=== PATIENT | female | born 1990 | race Two or more races ===

== ENCOUNTER 2020-06-25 08:05 | Inpatient (IN) | payer OTHER ==
--- OUTSIDE RECORDS SUMMARY | 2020-06-25 08:26 | XMS ---
:1990 Author Organization [facility] Care Team Providers Name Role Phone MD Amita Chamberlain Unavailable Unavailable MD Christian Chu Unavailable Unavailable Other, Doctor Unavailable Unavailable Re-disclosure Warning The records that you are about to access may contain information from federally- assisted alcohol or drug abuse programs. If such information is present, then the following federally mandated warning applies: This information has been disclosed to you from records protected by federal confidentiality rules (42 CFR part 2). The federal rules prohibit you from making any further disclosure of this information unless further disclosure is expressly permitted by the written consent of the person to whom it pertains or as otherwise permitted by 42 CFR part 2. A general authorization for the release of medical or other information is NOT sufficient for this purpose. The Federal rules restrict any use of the information to criminally investigate or prosecute any alcohol or drug abuse patient.The records that you are about to access may contain highly sensitive health information, the redisclosure of which is protected by Article 27-F of the [facility] Public Health law. If you continue you may haveaccess to information: Regarding HIV / AIDS; Provided by facilities licensed or operated by the [facility] Office of Mental Health; or Provided by the [facility] Office for People With Developmental Disabilities. If such information is present, then the following [facility] mandated warning applies: This information has been disclosed to you from confidential records which are protected by state law. State law prohibits you from making any further disclosure of this information without the specific written consent of the person to whom it pertains, or as otherwise permitted by law. Any unauthorized further disclosure in violation of state law may result in a fine or chcf sentence or both. A general authorization for the release of medical or other information is NOT sufficient authorization for further disclosure. Encounters Encounter Providers Location Date Indications Data Source(s ) Outpatient Attender: MD Levi ICUConcepciónOBCARYN 06/21/2020 [facility] [place] 08:50:00 AM Hospital Doctor Other EDT Outpatient Attender: Doctor SHIPMAN 06/12/2020 [facility] Other 10:36:30 AM Hospital EDT Admission cancelled. Disregard status an d admitted date. Outpatient Attender: MD Levi ICUConcepciónOBCARYN 06/07/2020 11:03:02 [facility] [place] Doctor AM EDT - 06/12/2020 Hospital Other 11:59:00 PM EDT Patient discharged. Outpatient Attender: MD Levi ICUConcepciónLABCLKingston 05/17/2020 11:07:39 [facility] [place]: Doctor AM EDT - 06/07/2020 Hospital Other 11:59:00 PM EDT Patient discharged. Outpatient Attender: MD Levi ICUConcepciónOBCARYN 05/08/2020 10:27:56 [facility] [place]: Doctor AM EDT - 05/17/2020 Hospital Other 11:59:00 PM EDT Patient discharged. Outpatient Attender: MD [facility]ETIC CTR 04/24/2020 05:06:00 [facility] [place] PM EDT - 04/24/2020 [facility] 11:59:00 PM EDT Patient discharged. Outpatient Attender: MD Levi ICUConcepciónOBCARYN 04/24/2020 10:49:20 [facility] [place]: Doctor AM EDT - 05/08/2020 [facility] Other 11:59:00 PM EDT Patient discharged. Outpatient Attender: MD [facility] CTR 04/18/2020 04:35:00 [facility] [place] PM EDT - 04/18/2020 [facility] 11:59:00 PM EDT Patient discharged. Outpatient Attender: MD SHIPMAN 04/18/2020 08:18:00 [facility] [place] - 04/18/2020 Hospital 11:59:00 PM EDT Patient discharged. Outpatient Attender: MD Levi ICU-OBGYN 04/17/2020 12:18:57 [facility] [place] Roland[place]: Doctor PM EDT - 04/24/2020 Hospital Other 11:59:00 PM EDT Patient discharged. Outpatient Attender: MD Levi ICU-[facility]CL[facility] 03/27/2020 11:38:26 [facility] [place]: Doctor AM EDT - 04/17/2020 Hospital Other 11:59:00 PM EDT Patient discharged. Outpatient Attender: MD Levi ICU-[facility]CLKing[place] 03/27/2020 10:15:00 [facility] [place] AM EDT - 03/27/2020 [facility] 11:59:00 PM EDT Patient discharged. Outpatient Attender: ICUConcepciónLABAILYN 03/27/2020 10:00:00 [facility] [place] Other AM EDT - 03/27/2020 [facility] 11:59:00 PM EDT Patient discharged. Medications Medication Brand Start Product Dose Route Administrative Pharmacy [facility] Indications Reaction Description Data Name Date Form Instructions Instructions Source(s) alpha-Tocop Thrivi [id number] active Thriv ite RX [facility] herol te RX 2019 {tab( Health Acetate 30 oral 09:37: s)} System UNT / tablet 47 AM Ascorbic EDT Acid 100 MG / Beta Carotene 1000 UNT / Calcium Carbonate 200 MG / Calcium Pantothenat e 7 MG / Cholecalcif radhika 400 UNT / Docusate Sodium 25 MG / Ferrous fumarate 29 MG / Folic Acid 1 MG / Niacinamide 15 MG / Pyrid Thrivite RX oral tablet May discolor urine or feces.Take with fo od or milk. [place]-3 Fatty 05/17/2020 1 [id number] aborted [facility] Acids DHA 200 10:55:44 AM {cap(s)} DHA Health DHA 200 mg oral mg oral EDT S ystem capsule capsule alpha-Tocopherol 04/20/2020 1 [id number] aborted [facility] Acetate 30 UNT / Plus Iron 12:07:34 PM {tab(s)} Plus Iron Health Ascorbic Acid oral EDT System 100 MG / Beta tablet Carotene 1000 UNT / Calcium Carbonate 200 MG / Calcium Pantothenate 7 MG / Cholecalciferol 400 UNT / Docusate Sodium 25 MG / Ferrous fumarate 29 MG / Folic Acid 1 MG / Niacinamide 15 MG / Pyrid Plus Iron oral tablet [place]-3 Fatty 04/17/2020 1 [id number] active [facility] Acids DHA 200 12:09:24 PM {cap(s)} DHA Health DHA 200 mg oral mg oral EDT S ystem capsule capsule Insurance Providers Payer name Policy type Policy ID Covered Covered republican's Policy P david / Coverage republican ID relationship to Don Inf ormation type don [facility] Medicaid [id number] 1 [id number] Plan 3&4 [facility] [id number] SP [id number] ESSENTIAL PLAN 3 4 [facility] [id number] SP [id number] HEALTH NON CAP Problems, Conditions, and Diagnoses Code Display Name Description Problem Type Effective Data Sour ce(s) Dates O34.219 Previous Previous 61433-2 03/27/2020 [facility] delivery delivery 12:00:00 AM Health System affecting affecting EDT , , antepartum antepartum Z34.93 Encounter for Encounter for Diagnosis 06/21/2020 S - Ne w supervision of [facility] unspecified, in third third trimester trimester Z3A.38 38 weeks 38 weeks Diagnosis 06/21/2020 S - New gestation of gestation of 12:00:00 AM [facility]ra EDT Hospital Z34.90 Encounter for Diagnosis 06/21/2020 S - New supervision of 12:00:00 AM Kendra normal , EDT Hospita l unspecified, unspecified trimester Z3A.37 37 weeks 37 weeks Diagnosis 06/12/2020 [facility] - New gestation of gestation of 12:00:00 AM Kendra EDT Hospital Z3A.36 36 weeks 36 weeks Diagnosis 06/07/2020 S - New gestation of gestation of 12:00:00 AM Kendra EDT Hospital Z3A.33 33 weeks 33 weeks Diagnosis 05/17/2020 S - New gestation of gestation of 12:00:00 AM Kendra EDT Hospital P07.35 , 32 week Diagnosis 05/08/2020 S - Ne w gestational age prematurity 12:00:00 AM Tegan e 32 completed EDT Hospital weeks Z3A.32 32 weeks 32 weeks Diagnosis 05/08/2020 S - New gestation of gestation of 12:00:00 AM Kendra EDT [facility] O24.410 Gestational Gestational Diagnosis 04/24/2020 [facility] - [facility] diabetes mellitus diabetes 05:06:00 PM Mara le in , mellitus, EDT [facility] diet controlled diet-controlled O36.5990 Maternal care for IUGR, Diagnosis 04/24/2020 S - New other known or 12:00:00 AM [place] suspected poor EDT [facility] growth, unspecified trimester, not applicable or unspecified O09.90 Supervision of High risk Diagnosis 04/24/2020 S - New high risk , 12:00:00 AM Kendra , antepartum EDT Hospital unspecified, unspecified trimester Z3A.30 30 weeks 30 weeks Diagnosis 04/24/2020 S - New gestation of gestation of 12:00:00 AM Kendra EDT [facility] Z34.83 Encounter for Encounter for Diagnosis 04/18/2020 S - Ne w supervision of supervision of 08:18:00 AM [place]aleb l[place] other normal normal EDT Hospit al , third in multigravida trimester in third trimester Z3A.29 29 weeks 29 weeks Diagnosis 04/17/2020 S - New gestation of gestation of 12:00:00 AM Kendra EDT [facility] Z34.92 Encounter for Encounter for Diagnosis 03/27/2020 S - Ne w supervision of supervision of 10:15:00 AM [place] l[place] normal , normal EDT ospital unspecified, in second second trimester trimester O34.219 Maternal care for Previous Diagnosis 03/27/2020 S - New unspecified type delivery 12:00:00 AM Tegan e [facility] from [facility] EDT [facility] previous , delivery antepartum Z3A.26 26 weeks 26 weeks Diagnosis 03/27/2020 S - New gestation of gestation of 12:00:00 AM Kendra EDT [facility] Surgeries/Procedures Procedure Description Date Indications Data Source(s) Uric Acid, Serum 06/07/2020 02:44:17 [facility] PM EDT - 06/07/2020 02:44:59 PM EDT Results ID Date Data Source [id number] 06/21/2020 11:55:00 AM EDT [facility] Name Value Range Interpretation Description Data Sup porting Code Source(s) Document(s ) SARS [facility] coronavirus 2 RNA This lab was ordered by [facility] and reported by [facility]. ID Date Data Source [id number] 06/18/2020 01:54:35 AM EDT [facility] Name Value Range Interpretation Description Data Sup porting Code Source(s) Document(s ) VaricellaResultValue 322.10 Normal (applies Varicella [facility] {index} to non-numeric Result Value Health results) System Index Interpretation------ --- <135.00 Negative - Antibody not detected1 35.00 - 164.99 Equivocal> or = 165.00 Positive - Antibody detectedA positive r esult indicates that the patienthas antibody to VZV but does not differentiatebetween an active or past infection. The clinical diagnosis must be interpreted in conjunc tion with the clinical signs and symptoms of the patient. This assay reliably measure s immunitydue to previous infection but may not be sensitive enough to detect antibo dies induced byvaccination. Thus, a negative result in a vaccinatedindividual does no t necessarily indicatesusceptibility to VZV infection. A more sensitivetest for vacc ination-induced immunity is VaricellaZoster Virus Antibody Immunity Screen, ACIF.THI S TEST WAS PERFORMED AT:[facility] [id number] TSAO,MDReported Date and Time - 03/30/20 20 11:57 ID Date Data Source [id number] 06/18/2020 01:54:35 AM EDT [facility] Name Value Range Interpretation Description Data Sup porting Code Source(s) Document(s ) Hemoglobin 11.8 Below low normal Hemoglobin [facility] [Mass/volume] in {gm/dL} Health Blood System Leukocytes 8.8 Normal (applies WBC Count [facility] [#/volume] in {10^3_uL to non-numeric Health Unspecified } results) System specimen by Automated count Erythrocytes 3.83 Below low normal RBC Count [facility] [#/volume] in {10^6_uL Health Blood by } System Automated count Erythrocyte mean 30.8 pg Normal (applies MCH [facility] corpuscular to non-numeric Health hemoglobin results) System [Entitic mass] by Automated count Hematocrit 35.7 % Below low normal Hematocrit [facility] [Volume Health Fraction] of System Blood Erythrocyte 12.4 % Normal (applies RDW-CV [facility] distribution to non-numeric Health width [Entitic results) System volume] by Automated count Erythrocyte mean 93.2 fl Normal (applies MCV [facility] corpuscular to non-numeric Health volume [Entitic results) System volume] by Automated count Erythrocyte mean 33.1 Normal (applies MCHC [facility] corpuscular {gm/dL} to non-numeric Health hemoglobin results) System concentration [Mass/volume] by Automated count Platelets 272 Normal (applies Platelet Count [facility] [#/volume] in {10^3_uL to non-numeric Health Plasma by } results) System Automated count Nucleated 0.0 Normal (applies NRBC % [facility] erythrocytes {/100_WB to non-numeric Health [#/volume] in C} results) System Body fluid Platelet mean 9.6 fl Normal (applies MPV [facility] volume [Entitic to non-numeric Health volume] in Blood results) System by Automated count NRBC# 0.00 Normal (applies NRBC # [facility] {10^3_uL to non-numeric Health } results) System Neutrophils/100 69.1 % Normal (applies Neutrophil % [place] lisa leukocytes in to non-numeric Health Blood by results) System Automated count Lymphocytes 21.3 % Normal (applies Lymphocyte % [facility] [#/volume] in to non-numeric Health Blood by results) System Automated count Neutrophils 6.1 Normal (applies Neutrophil # [facility] [#/volume] in {10^3_uL to non-numeric Health Body fluid } results) System Lymphocyte 1.9 Normal (applies Lymphocyte # [facility] percent {10^3_uL to non-numeric Health differential } results) System count (procedure) Monocytes/100 7.2 % Normal (applies Monocyte % [facility] leukocytes in to non-numeric Health Blood results) System Monocytes 0.6 Normal (applies Monocyte # [facility] [#/volume] in {10^3_uL to non-numeric Health Blood by Manual } results) System count Basophils 0.03 Normal (applies Basophil # [facility] [#/volume] in {10^3_uL to non-numeric Health Blood by } results) System Automated count Eosinophils 0.14 Normal (applies Eosinophil # [facility] [#/volume] in {10^3_uL to non-numeric Health Blood } results) System Basophils/100 0.3 % Normal (applies Basophil % [facility] leukocytes in to non-numeric Health Unspecified results) System specimen by Manual count Eosinophils/100 1.6 % Normal (applies Eosinophil % [place] lisa leukocytes in to non-numeric Health Unspecified results) System specimen ImmatureGranuloc 0.04 Normal (applies Immature [facility] ytes# {10^3_uL to non-numeric Granulocytes # Health } results) System ImmatureGranuloc 0.5 % Normal (applies Immature [facility] ytes% to non-numeric Granulocytes % Health results) System ID Date Data Source [id number] 06/18/2020 01:54:35 AM EDT [facility] Name Value Range Interpretation Code Description Data Shea rce(s) Supporting Document(s ) HbA1C 5.0 % Normal (applies to HbA1C [facility] non-numeric results) System ID Date Data Source [id number] 06/18/2020 01:54:35 AM EDT [facility] Name Value Range Interpretation Description Data Source(s ) Supporting Code Document(s ) 1HrGlucos 160 Normal (applies to 1 Hr Glucose [facility] {gm/dL} non-numeric Health System results) Normal <130Borderline 130-140A bnormal >140 ID Date Data Source [id number] 06/18/2020 01:54:35 AM EDT [facility] Name Value Range Interpretation Description Data Sup porting Code Source(s) Document(s ) Sodium 137 Normal (applies Sodium, Serum [facility] [Moles/volume] in mmol/L to non-numeric Health Serum or Plasma results) System Chloride 104 Normal (applies Chloride, [facility] [Moles/volume] in mmol/L to non-numeric Serum Health Serum or Plasma results) System Carbon dioxide, 25.0 Normal (applies CO2, Serum [facility] total mmol/L to non-numeric Health [Moles/volume] in results) System Serum or Plasma Potassium 4.0 Normal (applies Potassium, [facility] [Mass/volume] in mmol/L to non-numeric Serum Health Serum or Plasma results) System TotalProtein 6.5 Normal (applies Total Protein [facility] mg/dl to non-numeric Health results) System Glucose 152 Above high Glucose, [facility] [Mass/volume] in mg/dL normal Serum Health Serum or Plasma System Creatinine 0.61 Normal (applies Creatinine, [facility] [Mass/volume] in mg/dl to non-numeric Serum Health Serum or Plasma results) System Urea nitrogen 10 Normal (applies Blood Urea [facility] [Mass/volume] in mg/dl to non-numeric Nitrogen, Health Serum or Plasma results) Serum System DirectBilirubin 0.1 Normal (applies Direct [facility] mg/dl to non-numeric Bilirubin Health results) System Bilirubin.total 0.4 Normal (applies Bilirubin, [facility] [Mass/volume] in mg/dl to non-numeric Serum Total Health Serum or Plasma results) System Aspartate 13 Normal (applies Aspartate [facility] aminotransferase {IU/L} to non-numeric Transaminase, Heal th [Enzymatic results) Serum System activity/volume] in Serum or Plasma by With P-5'-P Alkaline 56 Normal (applies Alkaline [facility] phosphatase {IU/L} to non-numeric Phosphatase, [facility] isoenzymes results) Serum System [Enzymatic activity/volume] in Serum or Plasma by Heat stability Alanine 12 Normal (applies Alanine [facility] aminotransferase {IU/L} to non-numeric Aminotransfer Heal th [Enzymatic results) ase, Serum System activity/volume] in Serum or Plasma Albumin 3.5 Normal (applies Albumin, [facility] [Mass/volume] in {gm/dl} to non-numeric Serum Health Serum or Plasma results) System I.Phosphorus 2.9 Normal (applies I. Phosphorus [facility] mg/dl to non-numeric Health results) System Calcium 8.8 Normal (applies Calcium, [facility] [Mass/volume] in mg/dl to non-numeric Total Serum Health Serum or Plasma results) System A/GRatio 1.17 Normal (applies A/G Ratio [facility] to non-numeric Health results) System Urate 4.0 Normal (applies Uric Acid, [facility] [Mass/volume] in mg/dl to non-numeric Serum Health Serum or Plasma results) System Anion gap in Serum 8.00 Normal (applies Anion Gap [place] lisa or Plasma mmol/L to non-numeric Health results) System Glomerular > 90 Normal (applies GFR [facility] filtration to non-numeric Health rate/1.73 sq results) System M.predicted [Volume Rate/Area] in Serum or Plasma by Creatinine-based formula (CKD-EPI) eGFR will provide clinicians with a more accurate indicator of renal function then the serum creatinine. The eGFR is automa tically calculated from an empiric formula (endorsed by the National Kidney Found[employer] ion) which incorporates age, sex, and race.Clinicians may notice surprisingly low GFR's with serum creatinine valueswithin normal range- particularly in elderly wo men (with low muscle mass).In the hospital setting, the eGFR should add an element of safety in drug dosing, in assessing the risk of IV contrast administration, and in assessing vascular risk.The NKF staging system is as follows:Normal: eGFR >90 with no kidney markersStage 1: eGFR >90 with kidney markers*Stage 2: eGFR 60- 89Stage 3: eGFR 30-59Stage 4: eGFR 15-29Stage 5: eGFR <15 (usually requir ing dialysis)*Markers include: Proteinuria, Hematuria, abnormal imaging-studies, or other blood or urine test abnormalities ID Date Data Source [id number] 06/18/2020 01:54:35 AM EDT Kenneth martinez System Name Value Range Interpretation Description Data Sup porting Code Source(s) Document(s ) Blood 84 mg/dL Normal (applies Glucose [facility] glucose to non-numeric Tolerance, Health tolerance results) Serum Fasting System (procedure) Glucose Cancelled NO Glucose [facility] [Mass/volume SPECIMEN Tolerance, Health ] in Serum COLLECTED/ Serum 30 System or Plasma PATIENT Minutes --30 minutes VOMITTED/BENJAMÍN post [facility] challenge Glucose Cancelled NO Glucose [facility] [Mass/volume SPECIMEN Tolerance, Health ] in Serum COLLECTED/ Serum 2 Hour System or Plasma PATIENT --2 hours VOMITTED/BENJAMÍN post [facility] challenge Glucose Cancelled NO Glucose [facility] [Mass/volume SPECIMEN Tolerance, Health ] in Serum COLLECTED/ Serum 1 Hour System or Plasma PATIENT --1 hour VOMITTED/BENJAMÍN post [facility] challenge Glucose Cancelled NO Glucose [facility] [Mass/volume SPECIMEN Tolerance, Health ] in Serum COLLECTED/ Serum 3 Hour System or Plasma PATIENT --3 hours VOMITTED/BENJAMÍN post [facility] challenge ID Date Data Source [id number] 06/18/2020 01:54:35 AM EDT [facility] Name Value Range Interpretation Description Data Sup porting Code Source(s) Document(s ) Type A Normal (applies Type [facility] to non-numeric Health results) System AntibodyScreen Negative Normal (applies Antibody [facility] to non-numeric Screen Health results) System D Ab [Titer] in Negative Normal (applies Rh [facility] Serum or Plasma to non-numeric Health results) System ID Date Data Source [id number] 06/18/2020 01:54:35 AM EDT [facility] System Name Value Range Interpretation Description Data Sup porting Code Source(s) Document(s ) Human NONREACTIVE The Normal (applies HIV test, [facility] immunodeficien Jr. Systems Administrator HIV to non-numeric Routine Health cy virus 4th generation results) (antigen and System antibody titer HIV-1/2 antibody measurement Antigen/Antibod testing) (procedure) y combination is a chemiluminescen t Microparticle immunoassay(CMI A) for the simultaneous qualitative detection of HIV p24 antigen and HIV-1 and HIV-2 antibodies. The performance of this assay has not been clinically validated on patients less than 2 years old. Reference Range: NONREACTIVE . ID Date Data Source [id number] 06/18/2020 01:54:35 AM EDT Kenneth Lennon al[facility] System Name Value Range Interpretation Description Data Sup porting Code Source(s) Document(s ) Leukocytes 8.9 Normal (applies WBC Count [facility] [#/volume] in {10^3_uL to non-numeric Health Unspecified } results) System specimen by Automated count Hemoglobin 13.1 Normal (applies Hemoglobin [facility] [Mass/volume] in {gm/dL} to non-numeric Health Blood results) System Erythrocytes 4.31 Normal (applies RBC Count [facility] [#/volume] in {10^6_uL to non-numeric Health Blood by } results) System Automated count Erythrocyte mean 30.4 pg Normal (applies MCH [facility] corpuscular to non-numeric Health hemoglobin results) System [Entitic mass] by Automated count Erythrocyte mean 90.3 fl Normal (applies MCV [facility] corpuscular to non-numeric Health volume [Entitic results) System volume] by Automated count Hematocrit 38.9 % Normal (applies Hematocrit [facility] [Volume to non-numeric Health Fraction] of results) System Blood Erythrocyte mean 33.7 Normal (applies MCHC [facility] corpuscular {gm/dL} to non-numeric Health hemoglobin results) System concentration [Mass/volume] by Automated count Erythrocyte 13.1 % Normal (applies RDW-CV [facility] distribution to non-numeric Health width [Entitic results) System volume] by Automated count Platelets 261 Normal (applies Platelet Count [facility] [#/volume] in {10^3_uL to non-numeric Health Plasma by } results) System Automated count Nucleated 0.0 Normal (applies NRBC % [facility] erythrocytes {/100_WB to non-numeric Health [#/volume] in C} results) System Body fluid NRBC# 0.00 Normal (applies NRBC # [facility] {10^3_uL to non-numeric Health } results) System Platelet mean 10.5 fl Normal (applies MPV [facility] volume [Entitic to non-numeric Health volume] in Blood results) System by Automated count Lymphocytes 25.0 % Normal (applies Lymphocyte % [facility] [#/volume] in to non-numeric Health Blood by results) System Automated count Neutrophils/100 63.8 % Normal (applies Neutrophil % [place] lias leukocytes in to non-numeric Health Blood by results) System Automated count Neutrophils 5.7 Normal (applies Neutrophil # [facility] [#/volume] in {10^3_uL to non-numeric Health Body fluid } results) System Monocytes 0.8 Normal (applies Monocyte # [facility] [#/volume] in {10^3_uL to non-numeric Health Blood by Manual } results) System count Monocytes/100 9.1 % Above high Monocyte % [facility] leukocytes in normal Health Blood System Lymphocyte 2.2 Normal (applies Lymphocyte # [facility] percent {10^3_uL to non-numeric Health differential } results) System count (procedure) Eosinophils 0.13 Normal (applies Eosinophil # [facility] [#/volume] in {10^3_uL to non-numeric Health Blood } results) System Eosinophils/100 1.5 % Normal (applies Eosinophil % [place] lisa leukocytes in to non-numeric Health Unspecified results) System specimen Basophils/100 0.2 % Normal (applies Basophil % [facility] leukocytes in to non-numeric Health Unspecified results) System specimen by Manual count Basophils 0.02 Normal (applies Basophil # [facility] [#/volume] in {10^3_uL to non-numeric Health Blood by } results) System Automated count ImmatureGranuloc 0.04 Normal (applies Immature [facility] ytes# {10^3_uL to non-numeric Granulocytes # Health } results) System ImmatureGranuloc 0.4 % Normal (applies Immature [facility] ytes% to non-numeric Granulocytes % Health results) System ID Date Data Source [id number] 06/18/2020 01:54:35 AM EDT [facility] Name Value Range Interpretation Description Data Sup porting Code Source(s) Document(s ) Sodium 136 Normal (applies Sodium, Serum [facility] [Moles/volume] in mmol/L to non-numeric Health Serum or Plasma results) System Chloride 104 Normal (applies Chloride, [facility] [Moles/volume] in mmol/L to non-numeric Serum Health Serum or Plasma results) System Potassium 4.0 Normal (applies Potassium, [facility] [Mass/volume] in mmol/L to non-numeric Serum Health Serum or Plasma results) System TotalProtein 6.3 Below low normal Total Protein [facility] mg/dl [facility] System Glucose 97 Normal (applies Glucose, [facility] [Mass/volume] in mg/dL to non-numeric Serum Health Serum or Plasma results) System Carbon dioxide, 23.1 Normal (applies CO2, Serum [facility] total mmol/L to non-numeric Health [Moles/volume] in results) System Serum or Plasma Creatinine 0.63 Normal (applies Creatinine, [facility] [Mass/volume] in mg/dl to non-numeric Serum Health Serum or Plasma results) System Urea nitrogen 10 Normal (applies Blood Urea [facility] [Mass/volume] in mg/dl to non-numeric Nitrogen, Health Serum or Plasma results) Serum System Alkaline 124 Above high Alkaline [facility] phosphatase {IU/L} normal Phosphatase, Health isoenzymes Serum System [Enzymatic activity/volume] in Serum or Plasma by Heat stability Bilirubin.total 0.6 Normal (applies Bilirubin, [facility] [Mass/volume] in mg/dl to non-numeric Serum Total Health Serum or Plasma results) System Aspartate 11 Normal (applies Aspartate [facility] aminotransferase {IU/L} to non-numeric Transaminase, Heal th [Enzymatic results) Serum System activity/volume] in Serum or Plasma by With P-5'-P DirectBilirubin 0.1 Normal (applies Direct [facility] mg/dl to non-numeric Bilirubin Health results) System Albumin 3.4 Normal (applies Albumin, [facility] [Mass/volume] in {gm/dl} to non-numeric Serum Health Serum or Plasma results) System Alanine 10 Normal (applies Alanine [facility] aminotransferase {IU/L} to non-numeric Aminotransfer Heal th [Enzymatic results) ase, Serum System activity/volume] in Serum or Plasma I.Phosphorus 2.7 Normal (applies I. Phosphorus [facility] mg/dl to non-numeric Health results) System A/GRatio 1.17 Normal (applies A/G Ratio [facility] to non-numeric [facility] results) System Calcium 8.8 Normal (applies Calcium, [facility] [Mass/volume] in mg/dl to non-numeric Total Serum [facility] Serum or Plasma results) System Urate 4.0 Normal (applies Uric Acid, [facility] [Mass/volume] in mg/dl to non-numeric Serum Health Serum or Plasma results) System Anion gap in Serum 8.90 Normal (applies Anion Gap Carlyle lisa or Plasma mmol/L to non-numeric Health results) System Glomerular > 90 Normal (applies GFR [facility] filtration to non-numeric Health rate/1.73 sq results) System M.predicted [Volume Rate/Area] in Serum or Plasma by Creatinine-based formula (CKD-EPI) eGFR will provide clinicians with a more accurate indicator of renal function then the serum creatinine. The eGFR is automa tically calculated from an empiric formula (endorsed by the National Kid[employer] ion) which incorporates age, sex, and race.Clinicians may notice surprisingly low GFR's with serum creatinine valueswithin normal range- particularly in elderly wo men (with low muscle mass).In the hospital setting, the eGFR should add an element of safety in drug dosing, in assessing the risk of IV contrast administration, and in assessing vascular risk.The NKF staging system is as follows:Normal: eGFR >90 with no kidney markersStage 1: eGFR >90 with kidney markers*Stage 2: eGFR 60- 89Stage 3: eGFR 30-59Stage 4: eGFR 15-29Stage 5: eGFR <15 (usually requir ing dialysis)*Markers include: Proteinuria, Hematuria, abnormal imaging-studies, or other blood or urine test abnormalities ID Date Data Source [id number] 06/18/2020 01:54:35 AM EDT [facility] Name Value Range Interpretation Description Data Sup porting Code Source(s) Document(s ) Reagin Ab Non-reactive Normal (applies RPR. [facility] [Presence Test to non-numeric Health ] in Methodology: results) System Serum by Nontreponemal RPR flocculation card test. ID Date Data Source [id number] 06/18/2020 01:54:35 AM EDT [facility] Name Value Range Interpretation Description Data Sup porting Code Source(s) Document(s ) XXX BETA HEMOLYTIC Organism [facility] microorganism STREPTOCOCCUS Health serotype GROUP B System [Identifier] in Isolate by Agglutination Streptococcus Micro Result Normal (applies Culture [facility] agalactiae to non-numeric Screen, Health [Presence] in results) Strep Group System Cervix by B Organism specific culture ColonyCount MANY Bromide Count [facility] System ID Date Data Source [id number] 06/18/2020 01:54:35 AM EDT [facility] Name Value Range Interpretation Description Data Sup porting Code Source(s) Document(s ) N.Gonor NOT DETECTED Normal (applies N. Gonorrhea [facility] rheabyL Reference Range: to non-numeric by LCR Health CR NOT DETECTED results) System C.Trach NOT DETECTED Normal (applies C. [facility] omatisA Reference Range: to non-numeric Trachomatis Health mp NOT DETECTED results) Amp System (Always SEE NOTES The Normal (applies (Always [facility] Message analytical to non-numeric Message) Health ) performance results) System characteristics of thisassay, when used to test SurePath(TM) specimens have beendetermined by [employer]. The modifications havenot been cleared or approved by the FDA. This assay hasbeen validated pursuant to the CLIA regulations and isused for clinical purposes.For additional information, please refer [email or web address] [email or web address]/faq/[email or web address](Th is link is being provided for information/educat ional purposes only.)THIS TEST WAS PERFORMED AT:[place] [id number] MEJIAMDReported Date and Time - 06/09/2020 04:03 Procedure Vital Signs ID Date Data Source UNK Name Value Range Interpretation Code Description Data Source(s) Body surface area 1.8 m2 1.8 m2 [facility] Derived from Health Syste m formula Body mass index 26.9 kg/m2 26.9 kg/m2 [facility] (BMI) [Ratio] [facility] Syst em Body weight 73.48 kg 73.48 kg [facility] System Body height 165.1 cm 165.1 cm [facility] System Body temperature 97.9 [degF] 0 - 200 Normal (applies to 97.9 [degF ] [facility] non-numeric results) [facility] System Body temperature 36.6 Naz 0 - 99.9 Normal (applies to 36.6 Naz [facility] non-numeric results) [facility] System Diastolic blood 85 mm[Hg] 0 - 999 Above high normal 85 mm[Hg] [facility] pressure [facility] System Systolic blood 119 mm[Hg] 0 - 999 Normal (applies to 119 mm[Hg] [facility] pressure non-numeric results) [facility] System Heart rate 84 0 - 999 Normal (applies to 84 [facility] non-numeric results) [facility] System Body surface area 1.8 m2 1.8 m2 [facility] Derived from Health Syste m formula Body mass index 26.7 kg/m2 26.7 kg/m2 [facility] (BMI) [Ratio] [facility] Syst em Body weight 73.02 kg 73.02 kg [facility] Body height 165.1 cm 165.1 cm [facility] System Body temperature 97.3 [degF] 0 - 200 Normal (applies to 97.3 [degF ] [facility] non-numeric results) [facility] System Body temperature 36.2 Naz 0 - 99.9 Below low normal 36.2 Naz [facility] Diastolic blood 94 mm[Hg] 0 - 999 Above high normal 94 mm[Hg] [facility] pressure [facility] System Systolic blood 131 mm[Hg] 0 - 999 Normal (applies to 131 mm[Hg] [facility] pressure non-numeric results) [facility] System Heart rate 78 0 - 999 Normal (applies to 78 [facility] non-numeric results) [facility] System Body surface area 1.7 m2 1.7 m2 [facility] Derived from [employer] m formula Body mass index 26.6 kg/m2 26.6 kg/m2 [facility] Body weight 72.57 kg 72.57 kg [facility] System Body height 165.1 cm 165.1 cm [facility] Body temperature 98.9 [degF] 0 - 200 Normal (applies to 98.9 [degF ] [facility] non-numeric results) [facility] System Body temperature 37.1 Naz 0 - 99.9 Normal (applies to 37.1 Naz [facility] non-numeric results) [facility] System Diastolic blood 76 mm[Hg] 0 - 999 Normal (applies to 76 mm[Hg] [facility] pressure non-numeric results) [facility] System Systolic blood 126 mm[Hg] 0 - 999 Normal (applies to 126 mm[Hg] [facility] pressure non-numeric results) [facility] System Heart rate 101 0 - 999 Above high normal [address] [facility] Body surface area 1.7 m2 1.7 m2 [facility] Derived from [employer] m formula Body mass index 26.2 kg/m2 26.2 kg/m2 [facility] ([facility]) [Ratio] [employer] Body weight 71.66 kg 71.66 kg [facility] System Body height 165.1 cm 165.1 cm [facility] Body temperature 98.5 [degF] 0 - 200 Normal (applies to 98.5 [degF ] [facility] non-numeric results) [facility] System Body temperature 36.9 Naz 0 - 99.9 Normal (applies to 36.9 Naz [facility] non-numeric results) [facility] System Diastolic blood 73 mm[Hg] 0 - 999 Normal (applies to 73 mm[Hg] [facility] pressure non-numeric results) [facility] System Systolic blood 124 mm[Hg] 0 - 999 Normal (applies to 124 mm[Hg] [facility] pressure non-numeric results) [facility] System Heart rate 83 0 - 999 Normal (applies to 83 [facility] non-numeric results) [facility] Body weight 72.57 kg 72.57 kg [facility] System Diastolic blood 81 mm[Hg] 0 - 999 Normal (applies to 81 mm[Hg] [facility] pressure non-numeric results) [facility] System Systolic blood 126 mm[Hg] 0 - 999 Normal (applies to 126 mm[Hg] [facility] pressure non-numeric results) [facility] System Heart rate 90 0 - 999 Normal (applies to 90 [facility] non-numeric results) [facility] System Body surface area 1.7 m2 1.7 m2 [facility] ore Derived from Health Syste m formula Body mass index 26.6 kg/m2 26.6 kg/m2 [facility] (BMI) [Ratio] [facility] Body weight 72.57 kg 72.57 kg [facility] System Body height 165.1 cm 165.1 cm [facility] System Body temperature 98.2 [degF] 0 - 200 Normal (applies to 98.2 [degF ] [facility] non-numeric results) [facility] System Body temperature 36.7 Naz 0 - 99.9 Normal (applies to 36.7 Naz [facility] non-numeric results) [facility] System Diastolic blood 53 mm[Hg] 0 - 999 Below low normal 53 mm[Hg] [facility] System Systolic blood 121 mm[Hg] 0 - 999 Normal (applies to 121 mm[Hg] [facility] pressure non-numeric results) [facility] System Heart rate 94 0 - 999 Normal (applies to 94 [facility] non-numeric results) [facility] System Body surface area 1.7 m2 1.7 m2 [facility] ore Derived from Health Syste m formula Body mass index 28.7 kg/m2 28.7 kg/m2 [facility] (BMI) [Ratio] [facility] Syst em Body weight 71.21 kg 71.21 kg [facility] System Body height 157.48 cm 157.48 cm [facility] System Body temperature 99.1 [degF] 0 - 200 Normal (applies to 99.1 [degF ] [facility] non-numeric results) [facility] System Body temperature 37.2 Naz 0 - 99.9 Normal (applies to 37.2 Naz [facility] non-numeric results) [facility] System Diastolic blood 63 mm[Hg] 0 - 999 Below low normal 63 mm[Hg] [facility] pressure [facility] System Systolic blood 95 mm[Hg] 0 - 999 Below low normal 95 mm[Hg] [facility] efior pressure [facility] System Heart rate 101 0 - 999 Above high normal 101 [facility] System Patient Treatment Plan of Care Planned Activity Planned Date Details Description Data Source (s) alpha-Tocopherol Acetate 05/24/2020 [facility] 30 UNT / Ascorbic Acid 100 09:37:47 AM EDT System MG / Beta Carotene 1000 UNT / Calcium Carbonate 200 MG / Calcium Pantothenate 7 MG / Cholecalciferol 400 UNT / Docusate Sodium 25 MG / Ferrous fumarate 29 MG / Folic Acid 1 MG / Niacinamide 15 MG / Pyrid [place]-3 Fatty Acids 05/17/2020 [facility] 10:55:44 AM EDT System alpha-Tocopherol Acetate 04/20/2020 [facility] 30 UNT / Ascorbic Acid 100 12:07:34 PM EDT System MG / Beta Carotene 1000 UNT / Calcium Carbonate 200 MG / Calcium Pantothenate 7 MG / Cholecalciferol 400 UNT / Docusate Sodium 25 MG / Ferrous fumarate 29 MG / Folic Acid 1 MG / Niacinamide 15 MG / Pyrid [place]-3 Fatty Acids 04/17/2020 [facility] 12:09:24 PM EDT System
--- NOTE | 2020-06-25 08:42 | HP ---
Past Medical History - Primary Care Physician PCP:: Amita Chamberlain - Admission Chief Complaint: 29 yo @ 39 weeks. h/o c/s for Failed Induction, LGA. Admitted for rpt c/s, declined History of Present Illness: 29 yo @ 39 weeks h/o c/s for Failed Induction, LGA Admitted for rpt c/s, declined History Source: Patient Limitations to Obtaining History: No Limitations - Past Medical History ...: 2 ...Para: 1 ... Weeks Gestation by Dates: 39 ...EDC by Dates: 06/30/20 ...EDC by Sono: 06/30/20 - Past Surgical History Past Surgical History: Yes: Hx Myomectomy: No Hx Transabdominal Cerclage: No - Smoking History Smoking history: Never smoked Have you smoked in the past 12 months: No - Alcohol/Substance Use Hx Alcohol Use: No History of Substance Use: reports: None - Social History Usual Living Arrangement: Yes: With Spouse History of Recent Travel: No Home Medications - Allergies Allergies/Adverse Reactions: Allergies Allergy/AdvReac Type Severity Reaction Status Date / Time No Known Allergies Allergy Verified 06/25/20 08:42 Family Medical History Family History: Unremarkable Review of Systems - Review of Systems Constitutional: reports: No Symptoms Eyes: reports: No Symptoms HENT: reports: No Symptoms Neck: reports: No Symptoms Cardiovascular: reports: No Symptoms Respiratory: reports: No Symptoms Gastrointestinal: reports: No Symptoms Genitourinary: reports: No Symptoms Breasts: reports: No Symptoms Reported Musculoskeletal: reports: No Symptoms Integumentary: reports: No Symptoms Neurological: reports: No Symptoms Endocrine: reports: No Symptoms Hematology/Lymphatic: reports: No Symptoms Psychiatric: reports: No Symptoms Physical Exam - Maternity Constitutional: Yes: Well Nourished, No Distress Eyes: Yes: WNL HENT: Yes: WNL Neck: Yes: WNL Cardiovascular: Yes: WNL Lungs: Clear to auscultation Breast(s): Yes: WNL - Abdominal Exam/OB Fundal Height: 38 Number of Fetuses: Single Presentation: Vertex Contractions: No Regularity: Irregular Intensity: Unaware Monitor Mode: External Heart Rate Location: [facility] Category: I Accelerations: Uniform Decelerations: None - Vaginal Exam/OB Vaginal Bleeding: No Dilatation (cm): closed Effacement (%): 30 Amniotic Membrane Status: Intact Presentation: Vertex/Position Station: -2 - Physical Exam Musculoskeletal: Yes: WNL Extremities: Yes: WNL Edema: Yes Edema: LLE: 1+, RLE: 1+ Integumentary: Yes: WNL Deep Tendon Reflex Grade: Normal +2 ...Motor Strength: WNL Psychiatric: Yes: WNL Hemorrhage Risk Assessment - Risk Factors Medium Risk Factors: Yes: Prior , uterine surgery,or multiple laparotomies Risk Score: 1 Risk Level: Medium Risk Problem List - Problems (1) 39 weeks gestation of Code(s): Z3A.39 - 39 WEEKS GESTATION OF (2) Previous delivery affecting Code(s): O34.219 - MATERNAL CARE FOR UNSP TYPE SCAR FROM PREVIOUS DEL Assessment/Plan Admit to LD Rpt c/s x 2 Risks, benefits, alternatives discussed with pt and her . Pt verbalized understanding and signed consent form
[2020-06-25] MEDS ORDERED: CITRIC ACID/SODIUM CITRATE 30 ML UNIT-DOSE CUP PO ONE (08:46)
[2020-06-25] MEDS: ELECTROLYTE-148 SOLN 1,000 ML IV SCH (09:20)
[2020-06-25 09:45] VITALS: BMI 27.1
[2020-06-25] MEDS ORDERED: ONDANSETRON 4 MG/2 ML VIAL IVPUSH PRN (10:25)
[2020-06-25] MEDS ORDERED: morphine SULFATE/PF 0.5 MG/ML (2cc Syringe - QUVA) SPIN ONE (10:25)
[2020-06-25] MEDS ORDERED: morphine SULFATE/PF 0.5 MG/ML (2cc Syringe - QUVA) ONE (10:38)
[2020-06-25] MEDS ORDERED: ePHEDrine SULFATE 50 MG/1 ML AMPULE ONE (10:39)
[2020-06-25] MEDS ORDERED: OXYTOCIN 20 UNITS in 0.9% NS 20 UNIT/1,000 ML INFUS.BAG IV ONE (11:17)
--- NOTE | 2020-06-25 12:02 | OP ---
Operative Note - Note: Operative Date: 06/25/20 Pre-Operative Diagnosis: 29 yo @ 39 weeks Previous c/s x 2 Unknown scar Operation: Rpt c/s via Pfannenstiel incision Findings: Baby girl born 9/ WT 3000gm, cord gases and blood collected Placenta and membranes complete Surgeon: Amita Chamberlain Mail Caller: Kimo Del Cid Anesthesiologist/PATIENT INTAKE REPRESENTATIVE: Jessica Bateman MD Anesthesia: Spinal Specimens Removed: placenta and membranes, cord gases and blood Estimated Blood Loss (mls): 800 Operative Report Dictated: No
[2020-06-25] MEDS ORDERED: METHYLERGONOVINE MALEATE 0.2 MG/1 ML AMP IM PRN (12:03)
[2020-06-25 12:06] LABS: CORD HCO3 26.6 mmHg (20-29); CORD PCO2 60.4 mmHg (30-78); CORD pH 7.261 (7.14-7.44)
[2020-06-25] MEDS ORDERED: ACETAMINOPHEN 1000 MG/100 ML VIAL (NON FORMULARY) IVPB PRN (12:06)
[2020-06-25 12:09] LABS: CORD BASE EXCESS -0.5 mmol/L (0-2); CORD HCO3 25.1 mmHg (20-29); CORD PCO2 44.7 mmHg (30-78); CORD pH 7.368 (7.14-7.44)
[2020-06-25] MEDS ORDERED: OXYTOCIN 20 UNITS in 0.9% NS 20 UNIT/1,000 ML INFUS.BAG IV SCH (12:15)
[2020-06-25] MEDS: SIMETHICONE 80 MG TAB.CHEW (FP) PO SCH ×3 (15:03→21:32)
[2020-06-25] MEDS: CEFAZOLIN 1 GM/D5W 1 GM/50 ML BAG IVPB SCH (18:04)
[2020-06-26] MEDS: SIMETHICONE 80 MG TAB.CHEW (FP) PO SCH ×6 (02:17→20:58)
[2020-06-26] MEDS: CEFAZOLIN 1 GM/D5W 1 GM/50 ML BAG IVPB SCH ×2 (02:17→09:10)
[2020-06-26 08:15] LABS: BASO % 0.3 % (0-2.0); EOS % 0.3 % (0-4.5); HEMATOCRIT 33.5 % (32.4-45.2); HEMOGLOBIN 11.4 GM/dL (10.7-15.3); LYMPH % 14.5 % (8-40); MCH 31.3 pg (25.7-33.7); MEAN CELL VOLUME 92.3 fl (80-96); MEAN PLT VOLUME 8.6 fl (7.5-11.1); MONO % 8.7 % (3.8-10.2); NEUT % 76.2 % (42.8-82.8); PLATELET COUNT 167 K/MM3 (134-434); RBC 3.64 M/mm3 (3.60-5.2); RDW 13.8 % (11.6-15.6); WHITE BLOOD COUNT 11.4 K/mm3 (4.0-10.0)
--- NOTE | 2020-06-26 08:17 | PN ---
Progress Note (short form) - Note Progress Note: Anesthesia/Pain Pt seen and examined S:Alert and awake,comfortable O: Vital Signs Temperature 98.5 F 06/26/20 06:00 Pulse Rate 78 06/26/20 06:00 Respiratory Rate 20 06/26/20 06:17 Blood Pressure 119/76 06/26/20 06:00 O2 Sat by Pulse Oximetry (%) 97 06/26/20 06:00 A/P; Current Active Problems 39 weeks gestation of (Acute) Previous delivery affecting (Acute) s/p c section Doing well post op Continue current care Andrew Aguilar M.D.
[2020-06-26] MEDS: ENOXAPARIN NA (PORCINE) 40 MG/0.4 ML DISP.SYRIN SQ SCH (09:10)
--- NOTE | 2020-06-26 10:21 | PN ---
Progress Note (short form) - Note Progress Note: pt. c/o some incisional pain. + voiding, tolerating diet, + flatus vss -af abd: soft, nt, nd, +bs dressing: c/d/i ve: min lochia ext: no calf tenderness b/l a/p pod 1 s/p c-sec pt. stable cbc today advance diet, activity as lisa
[2020-06-26] MEDS: oxyCODONE HCL 5 MG TABLET PO PRN (13:01)
[2020-06-26] MEDS: ACETAMINOPHEN 325 MG TABLET (FP) PO PRN ×2 (13:01→20:57)
[2020-06-26] MEDS: ELECTROLYTE-148 SOLN 1,000 ML IV SCH (20:47)
[2020-06-26] MEDS ORDERED: BISACODYL 10 MG SUPP.RECT RC SCH (22:00)
[2020-06-27] MEDS: SIMETHICONE 80 MG TAB.CHEW (FP) PO SCH ×7 (02:05→20:21)
[2020-06-27] MEDS: oxyCODONE HCL 5 MG TABLET PO PRN ×3 (05:52→20:21)
[2020-06-27] MEDS: ACETAMINOPHEN 325 MG TABLET (FP) PO PRN ×2 (05:52→13:13)
[2020-06-27] MEDS: ELECTROLYTE-148 SOLN 1,000 ML IV SCH (09:40)
[2020-06-27] MEDS: ENOXAPARIN NA (PORCINE) 40 MG/0.4 ML DISP.SYRIN SQ SCH (09:42)
--- NOTE | 2020-06-27 10:59 | PN ---
Post Progress Note Post Day: 2 Type of Delivery: Repeat C/S Vital Signs: Vital Signs Temperature 97.7 F 06/27/20 09:49 Pulse Rate 75 06/27/20 09:49 Respiratory Rate 17 06/27/20 09:49 Blood Pressure 116/79 06/27/20 09:49 O2 Sat by Pulse Oximetry (%) 97 06/26/20 18:00 Breast Exam: Yes: Soft Uterus: Yes: Fundus Firm, Fundus below umbilicus Incision: Yes: Sutures intact Abdomen/GI: Yes: Abdomen soft Lochia: Yes: Rubra Lochia, amount: Small Extremities: Yes: Calves non-tender Perineum: Yes: Intact Activity: Ambulating - Labs Labs: CBC WBC 11.4 K/mm3 (4.0-10.0) H 06/26/20 07:40 RBC 3.64 M/mm3 (3.60-5.2) 06/26/20 07:40 Hgb 11.4 GM/dL (10.7-15.3) 06/26/20 07:40 Hct 33.5 % (32.4-45.2) 06/26/20 07:40 MCV 92.3 fl (80-96) 06/26/20 07:40 MCH 31.3 pg (25.7-33.7) 06/26/20 07:40 MCHC 34.0 g/dl (32.0-36.0) 06/26/20 07:40 RDW 13.8 % (11.6-15.6) 06/26/20 07:40 Plt Count 167 K/MM3 (134-434) D 06/26/20 07:40 MPV 8.6 fl (7.5-11.1) 06/26/20 07:40 Absolute Neuts (auto) 8.7 K/mm3 (1.5-8.0) H 06/26/20 07:40 Neutrophils % 76.2 % (42.8-82.8) 06/26/20 07:40 Lymphocytes % 14.5 % (8-40) D 06/26/20 07:40 Monocytes % 8.7 % (3.8-10.2) 06/26/20 07:40 Eosinophils % 0.3 % (0-4.5) 10/06/20 07:40 Basophils % 0.3 % (0-2.0) 06/26/20 07:40 Nucleated RBC % 0 % (0-0) 06/26/20 07:40 Problem List - Problems (1) 39 weeks gestation of Code(s): Z3A.39 - 39 WEEKS GESTATION OF (2) Previous delivery affecting Code(s): O34.219 - MATERNAL CARE FOR UNSP TYPE SCAR FROM PREVIOUS DEL Assessment/Plan ambulate
[2020-06-28] MEDS: SIMETHICONE 80 MG TAB.CHEW (FP) PO SCH ×4 (01:03→13:11)
[2020-06-28] MEDS: ACETAMINOPHEN 325 MG TABLET (FP) PO PRN ×2 (06:46→14:30)
[2020-06-28] MEDS: oxyCODONE HCL 5 MG TABLET PO PRN (06:47)
[2020-06-28 08:17] LABS: BASO % 0.5 % (0-2.0); EOS % 4.9 % (0-4.5); HEMATOCRIT 33.5 % (32.4-45.2); HEMOGLOBIN 11.3 GM/dL (10.7-15.3); LYMPH % 24.9 % (8-40); MCH 31.1 pg (25.7-33.7); MCHC 33.8 g/dl (32.0-36.0); MEAN CELL VOLUME 92.1 fl (80-96); MEAN PLT VOLUME 8.3 fl (7.5-11.1); MONO % 6.2 % (3.8-10.2); NEUT % 63.5 % (42.8-82.8); PLATELET COUNT 230 K/MM3 (134-434); RBC 3.63 M/mm3 (3.60-5.2); RDW 13.8 % (11.6-15.6); WHITE BLOOD COUNT 10.1 K/mm3 (4.0-10.0)
[2020-06-28] MEDS: ENOXAPARIN NA (PORCINE) 40 MG/0.4 ML DISP.SYRIN SQ SCH (09:21)
[2020-06-28 09:27] VITALS: BP 106/64; PULSE 89; TEMP 97.9
--- NOTE | 2020-06-28 12:47 | DS ---
Physical Exam-AIR ANALYSIS TECHNICIAN Vital Signs: Vital Signs Temperature 97.9 F 06/28/20 09:25 Pulse Rate 89 06/28/20 09:25 Respiratory Rate 18 06/28/20 09:25 Blood Pressure 106/64 06/28/20 09:25 O2 Sat by Pulse Oximetry (%) 97 06/26/20 18:00 Constitutional: Yes: Well Nourished, No Distress, Calm Eyes: Yes: WNL, Conjunctiva Clear, EOM Intact HENT: Yes: WNL, Atraumatic, Normocephalic Neck: Yes: WNL, Supple, Trachea Midline Cardiovascular: Yes: WNL, Regular Rate and Rhythm Respiratory: Yes: WNL, Regular, CTA Bilaterally Gastrointestinal: Yes: WNL ...Rectal Exam: Yes: WNL Renal/: Yes: WNL Breast(s): Yes: WNL Musculoskeletal: Yes: WNL Extremities: Yes: WNL Integumentary: Yes: WNL Neurological: Yes: WNL, Alert, Oriented ...Motor Strength: WNL Psychiatric: Yes: WNL, Alert, Oriented Labs: CBC, BMP 06/28/20 07:44 Delivery - Delivery Type of Anesthesia: Spinal Episiotomy/Laceration: None EBL (cc): 800 Delivery, Single - Stages of Labor Date of Delivery: 06/25/20 Time of Delivery: 11:20 Time Placenta Delivered: 11:21 - Condition of Infant Warhead Maintenance Specialist/Enrollment Management Vice President Present: Yes Name: Sarika Valdes Gender: Female Weight: 3.033 kg Position: Right, OA Total Hours ROM (Hrs/Mins): 4mins - 1 Minute Total Score: 9 5 Minutes Total Score: 9 - [place] Feeding Plan Initial Plan: Exclusive throughout hospitalization Discharge Summary Problems reviewed: Yes Reason For Visit: Current Active Problems 39 weeks gestation of (Acute) Previous delivery affecting (Acute) Condition: Good - Instructions Disposition: HOME - Home Medications Comprehensive Discharge Medication List: Ambulatory Orders Vits96/Iron Fum/Folic [ Tablet] 1 tab PO DAILY 06/25/20
[2020-06-28] MEDS: ELECTROLYTE-148 SOLN 1,000 ML IV SCH (12:58)
--- NOTE | 2020-06-28 18:33 | OP ---
DATE OF OPERATION: 06/25/2020 PREOPERATIVE DIAGNOSIS: 29-year-old G2, para 1 at 39 weeks, previous section x2, unknown scar. POSTOPERATIVE DIAGNOSIS: 29-year-old G2, para 1 at 39 weeks, previous section x2, unknown scar. PROCEDURE: Repeat section via Pfannenstiel incision. SURGEON: Seth Feng MD. VALIDATION SOFTWARE FACILITATOR: MYLES Payne. ANESTHESIOLOGIST: Jessica Bateman MD. ANESTHESIA: Spinal. ESTIMATED BLOOD LOSS: 800 mL. FLUID: 1500 mL lactated Ringer's. URINE OUTPUT: 300 mL clear urine at the end of the procedure. FINDINGS: Baby girl born 9 and 9, weight 3000 g. Cord gases and blood collected. Placenta membrane complete, sent to pathology. Uterus, tubes and ovaries within normal limits. DESCRIPTION OF PROCEDURE: The patient was taken to the operating room, where spinal anesthesia was found to be adequate. She was then prepped and draped in the usual sterile fashion in dorsal supine position with leftward tilt. A Pfannenstiel skin incision was made through the scalpel and carried through to underlying layer of fascia with the Bovie. The fascia was incised in the midline and the incision extended laterally with Moses scissors. The superior and inferior aspect of fascial incision was grasped with Nathalia clamps, elevated, and the underlying rectus muscles dissected off bluntly. The rectus muscles were then in the midline. The peritoneum identified, tented up, and entered sharply with Metzenbaum scissors. The peritoneal incision was extended superiorly and inferiorly with good visualization of the bladder. The bladder blade was then inserted, and the vesicouterine peritoneum identified, grasped with pickups, and entered sharply with Metzenbaum scissors. The incision was extended laterally, and the bladder flap created digitally. The bladder blade was then reinserted in the lower uterine segment incision transverse fascia with the scalpel. The uterine incision was then extended laterally with bandage scissors. The bladder blade was then removed, then the delivered atraumatically. The nose and mouth were suctioned, and the cord clamped and cut. The was handed off to the waiting men's custom hair piece consultant. Cord gases and blood were collected. Placenta was then removed manually, the uterus exteriorized and cleared of all clots and debris. Uterine incision was repaired with 1-0 chromic in a running, locked fashion. Second layer of the same suture was used to obtain hemostasis. The bladder flap was repaired with 2-0 chromic in a running stitch, and the uterus returned to the abdomen. The gutters were cleared of all clots, and the peritoneum closed with 2-0 chromic. The fascia was reapproximated with 0 Vicryl in a running fashion, and the skin was closed with 4-0 Vicryl in subcuticular fashion. Patient tolerated the procedure well. Sponge, lap, needle counts were correct x2. The patient was taken to the recovery room in stable condition. SETH FENG MD [id number]
--- NOTE | 2020-07-03 14:50 | PATH ---
Surgical Pathology Report Patient Name: BOB DUBON Med. Rec. #: [id number] /Age/Gender: 1990 (Age: 29) / F Account: [id number] Location: [facility] OBS/NONPROFIT FINANCIAL CONTROLLER Taken: 06/25/2020 Received: 06/25/2020 Reported: 07/03/2020 Physicians: Amita Chamberlain M.D. Specimen(s) Received PLACENTA Clinical History , 39.1 weeks Final Diagnosis PLACENTA, : MATURE THIRD TRIMESTER PLACENTA (427 G) WITH TRIVESSEL UMBILICAL CORD AND UNREMARKABLE MEMBRANES. Electronically Signed Berna Espinosa M.D. Gross Description The specimen is received fresh labeled placenta and is a 427 gram, 16.5 x 13.5 x 2.3 cm. placenta with attached membranes and umbilical cord. The attached membranes are figueroa, translucent with focal opacities and insert marginally. The umbilical cord measures 14 cm. in length and averages 1 cm. in diameter. The cord inserts eccentrically, 4 cm. to the nearest margin. No true knots or strictures are identified. Cut surface of the umbilical cord reveals 3 vessels. The surface is patel-blue with minimal fibrin deposition and appropriate caliber vessels. The maternal surface is red-brown with focal defects. Sectioning reveals red-brown, spongy parenchyma. No lesions are identified. Wellness Program Coordinator sections are submitted in three cassettes as follows: 1- membrane rolls and umbilical cord; 2-3- full thickness sections of placenta. /06/28/2020 saudi/06/28/2020
== END 2020-06-28 15:52 | disposition home or self-care (01) | DRG 540 ==
LOC: JLDR 08:05 → J3W 13:36
PROVIDERS: ADMIT Obstetrics & Gynecology; ATTEND Obstetrics & Gynecology
PROC: 10D00Z1 Extraction of Products of Conception, Low, Open Approach (ICD-10-PCS; principal; 2020-06-25)
DX: O82 Encounter for cesarean delivery without indication (principal); O34.219 Maternal care for unspecified type scar from previous cesarean delivery; O99.824 Streptococcus B carrier state complicating childbirth; Z3A.38 38 weeks gestation of pregnancy; Z37.0 Single live birth
CPT/HCPCS: 36415; 36600; 82803; 85025; 85461; 86705; 86706; 86999; 88307-TC

== ENCOUNTER 2022-11-13 06:20 | Inpatient (IN) | payer OTHER ==
[2022-11-13] MEDS ORDERED: ELECTROLYTE-148 SOLN 500 ML IV ONE (07:15)
[2022-11-13] MEDS ORDERED: CITRIC ACID/SODIUM CITRATE 30 ML UNIT-DOSE CUP PO ONE (07:15)
[2022-11-13] MEDS ORDERED: FENTANYL CITRATE/PF 50 MCG/ML VIAL ONE (08:11)
[2022-11-13] MEDS ORDERED: morphine SULFATE (PF) 1 MG/2 ML SYRINGE ONE (08:11)
[2022-11-13] MEDS ORDERED: ePHEDrine SULFATE 50 MG/1 ML AMPULE ONE (08:32)
[2022-11-13] MEDS ORDERED: PROPOFOL 20 ML ONE ×2 (08:43→09:24)
[2022-11-13] MEDS ORDERED: KETAMINE HCL 500 MG/10 ML VIAL ONE (08:45)
[2022-11-13] MEDS ORDERED: MIDAZOLAM HCL 2 MG/2 ML SINGLE DOSE VIAL ONE (08:45)
[2022-11-13] MEDS: OXYTOCIN 20 UNITS in 0.9% NS 20 UNIT/1,000 ML INFUS.BAG IV SCH ×2 (10:00→18:00)
[2022-11-13] MEDS ORDERED: morphine SULFATE/PF 1 MG/2 ML (2cc Syringe - QUVA) EP ONE (10:01)
[2022-11-13] MEDS ORDERED: ONDANSETRON 4 MG/2 ML VIAL IVPUSH PRN (10:01)
[2022-11-13] MEDS ORDERED: OXYTOCIN 20 UNITS in 0.9% NS 20 UNIT/1,000 ML INFUS.BAG IV ONE (10:02)
[2022-11-13] MEDS ORDERED: SENNOSIDES/DOCUSATE COMBO (SENNA PLUS) TABLET (UD) PO PRN (10:07)
[2022-11-13] MEDS ORDERED: ONDANSETRON 4 MG/2 ML VIAL IVPB PRN (10:07)
[2022-11-13] MEDS ORDERED: LACTATED RINGERS SOLUTION 1,000 ML/1,000 ML INFUS.BAG IV SCH (10:15)
[2022-11-13] MEDS ORDERED: HYDROmorphone HCL 2 MG TABLET PO PRN (10:17)
[2022-11-13] MEDS: ACETAMINOPHEN 1000 MG/100 ML BAG IVPB SCH ×3 (10:27→23:24)
[2022-11-13] MEDS ORDERED: HYDROmorphone HCl 2 MG/ML VIAL IVPUSH ONE (10:37)
[2022-11-13 10:49] VITALS: BMI 30.3
[2022-11-13] MEDS: SIMETHICONE 80 MG TAB.CHEW (FP) PO PRN (23:25)
[2022-11-14] MEDS: oxyCODONE HCL 5 MG TABLET PO PRN ×2 (02:59→09:14)
[2022-11-14] MEDS: ACETAMINOPHEN 1000 MG/100 ML BAG IVPB SCH (05:01)
[2022-11-14 07:48] LABS: BASO % 0.2 % (0-2.0); EOS % 0.6 % (0-4.5); HEMATOCRIT 32.8 % (32.4-45.2); HEMOGLOBIN 11.6 GM/dL (10.7-15.3); LYMPH % 15.2 % (8-40); MCH 32.3 pg (25.7-33.7); MCHC 35.3 g/dl (32.0-36.0); MEAN CELL VOLUME 91.6 fl (80-96); MEAN PLT VOLUME 8.1 fl (7.5-11.1); MONO % 7.7 % (3.8-10.2); NEUT % 76.3 % (42.8-82.8); PLATELET COUNT 211 10^3/uL (134-434); RBC 3.58 M/mm3 (3.60-5.2); RDW 13.2 % (11.6-15.6); WHITE BLOOD COUNT 10.9 K/mm3 (4.0-10.0)
[2022-11-14] MEDS: SIMETHICONE 80 MG TAB.CHEW (FP) PO PRN (09:14)
[2022-11-14] MEDS ORDERED: BISACODYL 10 MG SUPP.RECT RC PRN (10:07)
[2022-11-14] MEDS ORDERED: ACETAMINOPHEN 500 MG TABLET (FP) PO PRN (11:00)
[2022-11-14] MEDS: ACETAMINOPHEN 500 MG TABLET (FP) PO SCH ×2 (11:30→18:03)
[2022-11-15] MEDS: ACETAMINOPHEN 500 MG TABLET (FP) PO SCH ×4 (00:11→18:11)
[2022-11-15] MEDS ORDERED: ACETAMINOPHEN 500 MG TABLET (FP) ONE (05:54)
[2022-11-15] MEDS: oxyCODONE HCL 5 MG TABLET PO PRN ×2 (12:07→19:55)
[2022-11-15] MEDS: SIMETHICONE 80 MG TAB.CHEW (FP) PO PRN (19:55)
[2022-11-16] MEDS: ACETAMINOPHEN 500 MG TABLET (FP) PO SCH ×3 (00:13→12:26)
[2022-11-16 10:16] VITALS: BP 124/86; PULSE 87; RESP 18; TEMP 98
== END 2022-11-16 12:40 | disposition home or self-care (01) | DRG 540 ==
LOC: JLDR 06:20 → J3W 11:30
PROVIDERS: ADMIT Specialist; ATTEND Specialist
PROC: 10D00Z1 Extraction of Products of Conception, Low, Open Approach (ICD-10-PCS; principal; 2022-11-13)
PROC: 0DNU0ZZ Release Omentum, Open Approach (ICD-10-PCS; 2022-11-13)
DX: O34.211 Maternal care for low transverse scar from previous cesarean delivery (principal); O69.81X0 Labor and delivery complicated by cord around neck, without compression, not applicable or unspecified; O69.89X0 Labor and delivery complicated by other cord complications, not applicable or unspecified; N73.6 Female pelvic peritoneal adhesions (postinfective); Z3A.39 39 weeks gestation of pregnancy; Z37.0 Single live birth
CPT/HCPCS: 36415; 80053; 85025; 85027; 85461; 85610; 85730; 86780; 86850; 86870; 86900; 86901; 86902; 86999; 87389; 88304-TC; 88307-TC; C9803-CS; U0003; U0005